=== PATIENT | male | born 1970 | race Caucasian/White ===

== ENCOUNTER 2016-12-31 17:14 | Emergency (ER) | payer OTHER ==
[~2016-12-31] VITALS: Ht 185.4 cm; Wt 95.5 kg
[2016-12-31 17:23] VITALS: BP 148/96; PULSE 69; RESP 17; O2SAT 95
[2016-12-31 17:32] LABS: BASOPHILS % (AUTO) 0.4 % (0-3); EOSINOPHILS % (AUTO) 1.5 % (0-5); MONOCYTES % (AUTO) 9.6 % (4-12); Mean Corpuscular Hemoglobin 31.5 pg (27.0-35.0); Mean Corpuscular Volume 89.8 fL (81-100); NEUTROPHILS % (AUTO) 46.2 % (40-74); Platelet Count 154 bil/L (150-400)
[2016-12-31 17:57] LABS: TROPONIN T < 0.010 ug/L (0.0-0.011)
[2016-12-31 18:06] VITALS: BP 145/95; PULSE 63; RESP 18; O2SAT 97
--- NOTE | 2016-12-31 18:22 | DRSVH ---
PROCEDURE: X-RAY CHEST ONE VIEW, PORTABLE ([id number]) INDICATIONS: chest pain TECHNIQUE: One view of the chest was acquired. COMPARISON: None. FINDINGS: Surgical changes and devices: None. Lungs and pleura: No pleural effusions or pneumothorax. Lungs are clear. Mediastinum: Mediastinal contours appear normal. Heart size is normal. Bones and chest wall: No suspicious bony lesions. Overlying soft tissues appear unremarkable. IMPRESSION: Source of current chest pain is not seen. Dictated by: Clayton Stinson M.D. on 12/31/2016 at 18:20 Approved by: Clayton Stinson M.D. on 12/31/2016 at 18:20
--- NOTE | 2016-12-31 18:35 | ED.REPORT ---
HPI-Chest Pain 40 and Over Date of Service Dec 31, 2016 ED Provider: Joana Zhu MD Patient is a 46 year old male who presents to the ED complaining of constant chest pain onset 4 days ago. Associated symptoms include radiating left arm pain and numbness. He denies lightheadedness, dizziness, nausea, vomiting or palpitations. The patient reports that he has had chest pain while running before but it normally resolves. Patient also reports having heart burn before but it normally isn't as painful as what he is experiencing today. He states that he doesn't notice the pain with eating. Nursing Notes Stated Complaint: CHEST PAIN Chief Complaint: Chest Pain Nursing Notes Reviewed: Yes Allergies: Coded Allergies: No Known Allergies (Unverified , 12/31/16) General Time Seen by MD: 18:09 Chief Complaint Chest pain Hx Obtained From: Patient Arrived By: Walk-in Sudden in Onset?: Yes Onset Occurred: 4 days ago Symptom Duration: Since onset Location: : Chest left Quality: Heaviness Radiation: : Arm left Migration/Movement: Reports: None Severity: Current: Moderate Recent Healthcare: Recent doctor visit Risk Factors )( CAD Risk Stratification No Diabetes mellitus, No Family history, No Smoking Risk factors reviewed HEART Score HEART for MACE: Low index of susp (0), Normal ECG (0), < or = to NL troponin (0 ) HEART for MACE Score: 0-3 (low risk 0.9%-1.7%) PERC Rule PERC Result: All PERC criteria "No" Past Medical History Past Medical History states he has been told he has hypertension but does not take any medications for it Smoking History Never Smoker Social History Drug Use: Denies drug use Other Social History: Good social support Ambulatory Status Independent Review of Systems Constitutional: Denies: Chills, Fever Respiratory: Denies: Non-productive cough, Shortness of breath Cardiovascular: Reports: Chest pain, Denies: Palpitations GI: Denies: Nausea, Vomiting Skin: Denies Itching, Denies Rash Neurologic: Reports: Numbness, Denies: Dizziness, Lightheaded, Weakness Complete sys rev & neg: except as marked. Physical Exam Initial Vital Signs Vital Signs (First) Date Time Temp Pulse Resp B/P Pulse Ox O2 Delivery O2 Flow Rate FiO2 12/31/16 17:23 36.2 69 17 148/96 95 Room Air Initial VS: Reviewed General/Constitutional: Awake, Alert, No acute distress, Well appearing Respiratory / Chest: Atraumatic, Breath sounds NL, Breath sounds = bilat, No respiratory distress Cardiovascular: Heart rate NL, Regular rhythm, Heart sounds NL Abdomen: Atraumatic, Soft, Non-tender Lower Extremity / Pelvis / MS: Atraumatic, No edema Skin: Atraumatic, Color NL, No rash, Warm, Dry Neurologic: Oriented X3, Speech NL Psychiatric: Affect NL, Mood NL Head / Eyes: Atraumatic, Normocephalic, PERRL, EOMI Upper Extremity / MS: Atraumatic, Full range of motion 2+ pulses bilateral radials Interpretation & Diagnostics Lab Results Interpretation Result Diagram: 12/31/16 1729 12/31/16 1729 Test 12/31/16 17:28 12/31/16 17:29 Hold Purple Top Tube Received (Received) Hold Blue Top Tube Received (Received) Hold Red Top Tube Received (Received) Hold Steinauer Top Tube Received (Received) White Blood Count 5.3th/mm3 (3.8-10.1) Red Blood Count 4.79mil/mm3 (4.40-5.80) Hemoglobin 15.1g/dL (13.8-17.2) Hematocrit 43.0% (41.0-50.0) Mean Corpuscular Volume 89.8fL (81-100) Mean Corpuscular Hemoglobin 31.5pg (27.0-35.0) Mean Corpuscular Hemoglobin Concent 35.1% (32.0-37.0) Red Cell Distribution Width 12.3% (12.3-15.4) Platelet Count 154bil/L (150-400) Neutrophils (%) (Auto) 46.2% (40-74) Lymphocytes (%) (Auto) 42.1% (14-46) Monocytes (%) (Auto) 9.6% (4-12) Eosinophils (%) (Auto) 1.5% (0-5) Basophils (%) (Auto) 0.4% (0-3) Sodium Level 139mEq/L (134-144) Potassium Level 3.7mEq/L (3.5-5.2) Chloride Level 101mEq/L (97-108) Carbon Dioxide Level 22mmol/L (18-29) Blood Urea Nitrogen 16mg/dL (6-24) Creatinine 0.81mg/dL (0.76-1.27) Estimat Glomerular Filtration Rate 110mL/min (>59) Glucose Level 94mg/dL (60-99) Calcium Level 9.6mg/dL (8.5-10.1) Magnesium Level 2.0mg/dL (1.6-2.6) Total Bilirubin 0.7mg/dL (0.0-1.2) Aspartate Amino Transf (AST/SGOT) 22U/L (0-50) Alanine Aminotransferase (ALT/SGPT) 18U/L (0-44) Alkaline Phosphatase 55U/L (25-150) Troponin T < 0.010ug/L (0.0-0.011) Total Protein 8.1g/dL (6.4-8.4) Albumin 4.7g/dL (3.4-5.0) ECG Interpretation ECG Interpretation: prolonged OR interval Time: 17:30 Interpreted by: ED physician Normal ECG Interpretation: Normal rate (67), Normal sinus rhythm X-Ray Chest Interpretation Chest Xray Interpretation: IMPRESSION: Source of current chest pain is not seen. Dictated by: Clayton Stinson M.D. on 12/31/2016 at 18:20 Approved by: Clayton Stinson M.D. on 12/31/2016 at 18:20 View: Portable, 1 view Interpretation / Wet Read by: Interpret - Radiologist Re-Eval/Medical Decision Med Decision/Clinical Course 46-year-old male with chest pain not typical of cardiac chest pain, present for 4 days constantly, negative troponin. Patient is well-appearing with a normal physical exam. His EKG is normal with exception first-degree AV block. I discussed this with the patient he will follow up and discuss with his primary care doctor. I do not suspect pulmonary embolus, aortic dissection. I did discuss the patient has a long-standing history of heartburn symptoms the possibility of this being esophageal in nature and trialing an [id number] treatment for GERD. Time of Eval: 19:25 Re-Evaluation/Progress Note: Discussed all results and plan for discharge. Patient understands and agrees to plan. All questions were addressed. Counseled Regarding: Diagnosis, Lab results, Need for follow-up, When/why to return to ED Discharge & Departure Primary Impression: Chest pain Chest pain type: unspecified Qualified Code: R07.9 - Chest pain, unspecified Disposition: Home Discharge Condition All VS Reviewed: Yes Condition: Stable Patient Instructions: Chest Pain (ED) Additional Instructions: Your labs, EKG and chest X-ray were normal and reassuring. You can try taking over the counter Omeprazole to see if that helps with the pain. You can also try taking Tylenol for pain. Follow up with your primary care physician as scheduled to arrange further testing for your heart and your digestive system. Return to the emergency department if you develop any new or concerning symptoms. Referrals: Thea Martines PA-C (PCP) Rodolfo Laird MD (Family) Angela Attestation Portions of this note were transcribed by Roxanna Acosta. I, Dr. Zhu personally performed the history, physical exam and medical decision-making; I reviewed and confirmed the accuracy of the information in the transcribed note. Signed by: Angela Judd, 12/31/16 copies to: Rodolfo Laird MD; Thea Martines PA-C, Sarah C MD Dec 31, 2016 18:35 Tamar Acosta Dec 31, 2016 18:46
[2016-12-31] MEDS ORDERED: LidocaineVisc 2%:Antacid 1:1 10 mL Syringe PO ONE (18:40)
[2016-12-31 19:01] VITALS: BP 130/79; PULSE 53; RESP 15; O2SAT 97
[2016-12-31 20:21] VITALS: BP 135/90; PULSE 54; RESP 17; O2SAT 97
== END 2016-12-31 20:21 | disposition home or self-care (01) ==
LOC: SED 17:14
DX: R07.89 Other chest pain (principal)